=== PATIENT | male | born 2000 | race Caucasian/White ===

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

== ENCOUNTER 2019-01-02 11:04 | Emergency (ER) | payer MEDICAID ==
--- NOTE | 2019-01-02 11:45 | EDM.PDOC ---
ED HPI GENERAL MEDICAL PROBLEM - General Chief Complaint: Respiratory Problem Stated Complaint: CHEST CONGESTION Time Seen by Provider: 01/02/19 11:43 Source of Information: Reports: Patient History Limitations: Reports: No Limitations - History of Present Illness INITIAL COMMENTS - FREE TEXT/NARRATIVE: Pt has a persistent cough. He is raising alot of sputum. He has had a low grade temp. He has been ill for 2 weeks. He was placed on steriods and a inhaler. Onset: Gradual, Other ( Pt has been ill for 2 weeks. ) Duration: Hour(s): Location: Reports: Chest Associated Symptoms: Reports: Cough, Malaise, Other ( Pt is coughing until he vomits. ) - Related Data Allergies Allergy/AdvReac Type Severity Reaction Status Date / Time No Known Allergies Allergy Verified 01/02/19 11:30 Home Meds: Home Meds NK [No Known Home Meds] 01/02/19 [History] Past Medical History HEENT History: Reports: None Cardiovascular History: Reports: None Respiratory History: Reports: Asthma Gastrointestinal History: Reports: None Genitourinary History: Reports: None Musculoskeletal History: Reports: Fracture, Other (See Below) Other Musculoskeletal History: H/O LEFT ELBOW HAIRLINE FRACTURE Neurological History: Reports: Concussion Psychiatric History: Reports: ADHD, Anxiety Hematologic History: Reports: None Immunologic History: Reports: None Oncologic (Cancer) History: Reports: None Dermatologic History: Reports: None - Infectious Disease History Infectious Disease History: Reports: Chicken Pox, Shingles - Past Surgical History HEENT Surgical History: Reports: Adenoidectomy, Tonsillectomy Cardiovascular Surgical History: Reports: None Social & Family History - Family History Family Medical History: Noncontributory - Tobacco Use Smoking Status *Q: Never Smoker - Caffeine Use Caffeine Use: Reports: Energy Drinks - Recreational Drug Use Recreational Drug Use: Yes Recreational Drug Type: Reports: Marijuana/Hashish Recreational Drug Use Frequency: Weekly ED ROS GENERAL - Review of Systems Review Of Systems: See Below Constitutional: Reports: No Symptoms HEENT: Reports: No Symptoms Respiratory: Reports: Wheezing, Cough, Sputum Cardiovascular: Reports: No Symptoms Endocrine: Reports: No Symptoms GI/Abdominal: Reports: No Symptoms : Reports: No Symptoms Musculoskeletal: Reports: No Symptoms ED EXAM, GENERAL - Physical Exam Exam: See Below Free Text/Narrative:: pt a a history of a sig cough for the past 2 weeks. He is raising sputum. He was seen at urgent care and placed on steriods and a inhaler. He is still coughing alot and has been running a low grade temp. u Exam Limited By: No Limitations General Appearance: Alert, Anxious, Mild Distress Ears: Normal TMs Nose: Normal Inspection Throat/Mouth: Normal Inspection Head: Atraumatic Neck: Normal Inspection Respiratory/Chest: Crackles, Wheezing Cardiovascular: Regular Rate, Rhythm GI/Abdominal: Soft, Non-Tender (Male) Exam: Deferred Rectal (Males) Exam: Deferred Back Exam: Normal Inspection Extremities: Normal Inspection Neurological: Alert, Oriented, Normal Cognition Psychiatric: Normal Affect Course - Vital Signs Last Recorded V/S: Last Vital Signs Temp 35.9 C 01/02/19 11:30 Pulse 109 H 01/02/19 11:30 Resp 16 01/02/19 11:30 BP 145/98 H 01/02/19 11:30 Pulse Ox 95 01/02/19 11:30 - Orders/Labs/Meds Labs: Laboratory Tests 01/02/19 01/02/19 Range/Units 11:42 12:04 WBC 11.0 (4.5-11.0) K/uL RBC 5.57 (4.30-5.90) M/uL Hgb 16.2 H (12.0-15.0) g/dL Hct 47.7 (40.0-54.0) % MCV 86 (80-98) fL MCH 29 (27-31) pg MCHC 34 (32-36) % Plt Count 205 (150-400) K/uL Neut % (Auto) 58 (36-66) % Lymph % (Auto) 21 L (24-44) % [place] % (Auto) 19 H (2-6) % Eos % (Auto) 1 L (2-4) % Baso % (Auto) 1 (0-1) % Monoscreen Negative (NEGATIVE) - Re-Assessments/Exams Free Text/Narrative Re-Assessment/Exam: 01/02/19 12:35 Pt arrived with a sig cough. A chest xray was done and that was neg. He has a wbc which is 11,000. He is raising a fair amount of sputum. Departure - Departure Time of Disposition: 12:37 Disposition: Home, Self-Care 01 Condition: Fair Clinical Impression: Bronchitis - Discharge Information Referrals: PCP,None [Primary Care Provider] - Forms: ED Department Discharge Care Plan Goals: Use the inhaler three times daily, push fluids, cool mist humidifier at the bedside, robitussin ac 2 tsp q6h prn for the cough, zithromax 250-- 2 tabs now and then 1 tab daily for 6 days.
--- NOTE | 2019-01-02 12:21 | CRLCR ---
INDICATION: persistent cough TECHNIQUE: Chest 2 views. COMPARISON: None. FINDINGS: Cardiovascular and mediastinum: Heart size and vasculature are normal in caliber and appearance. Mediastinum is within normal limits. Lungs and pleural spaces: Lungs are clear. No sign of infiltrate or mass. No sign of pleural effusion. No pneumothorax. Bones and soft tissues: No significant findings. IMPRESSION: Unremarkable chest. Dictated by: Jose Worthington MD @ 01/02/2019 12:19:49 (Electronically Signed)
== END 2019-01-02 12:50 | disposition home or self-care (01) ==
LOC: JP.ED 11:04
DX: J40 Bronchitis, not specified as acute or chronic (principal)
CPT/HCPCS: 36415; 71046; 85025; 86308; 87804; 87804-59; 99285